=== PATIENT | male | born 1975 | race Caucasian/White ===

== ENCOUNTER 2019-04-01 16:59 | Emergency (ER) | payer SELFPAY ==
[~2019-04-01] VITALS: Ht 188 cm; Wt 136.0 kg
[2019-04-01 17:00] VITALS: BP 144/74
--- NOTE | 2019-04-01 18:59 | RAD ---
EXAM: 3 views right knee DATE: 04/01/2019 5:31 PM INDICATION: Right knee pain COMPARISON: No Prior FINDINGS: No evidence of acute fracture or dislocation. Joint spaces are preserved without significant degenerative/proliferative change. No joint effusion. Neutral patellar tracking. IMPRESSION: No evidence of acute fracture or dislocation. Electronically signed by: Marco Antonio Harley MD (04/01/2019 6:57 PM) [id number]
[2019-04-01] MEDS ORDERED: DICL50TA2 PO (19:10)
[2019-04-01] MEDS ORDERED: METH4TAB2 PO (19:10)
--- NOTE | 2019-04-01 19:10 | PHYS DOC ---
Past Medical History Past Medical History: No Pertinent History Past Surgical History: No Surgical History Smoking Status: Never Smoker Alcohol Use: None Adult General Chief Complaint Chief Complaint: LOWER EXT PAIN HPI HPI Patient is a 44 year old male patient who presents to the ED today with 8 out of 10 right anterior knee pain that began 14 years ago after an injury and got worse yesterday. Patient denies any new injury. Describes the pain as sharp and intermittent worse on certain movements to the knee. Denies anything specifically relieving the pain. Review of Systems Review of Systems Constitutional: Denies fever or chills [] Musculoskeletal: Reports right knee pain Integument: Denies rash or skin lesions [] Neurologic: Denies headache, focal weakness or sensory changes [] All other systems were reviewed and found to be within normal limits, except as documented in this note. Physical Exam Physical Exam Constitutional: Well developed, well nourished, no acute distress, non-toxic appearance. [] Skin: Warm, dry, no erythema, no rash. [] Back: No tenderness, no CVA tenderness. [] Extremities: Right knee with no obvious deformity, full range of motion of the right knee. Slight tenderness on palpation of the right anterior knee. +2 right pedal pulse. Cap refill less than 2 seconds the right lower extremity. Neurologic: Alert and oriented X 3, normal motor function, normal sensory function, no focal deficits noted. [] Psychologic: Affect normal, judgement normal, mood normal. [] Current Patient Data Vital Signs Vital Signs Date Time Temp Pulse Resp B/P (MAP) Pulse Ox O2 Delivery O2 Flow Rate FiO2 04/01/19 17:00 98.2 87 20 144/74 (97) 96 Room Air 98.2 EKG EKG [] Radiology/Procedures Radiology/Procedures []PROCEDURE: KNEE RIGHT 4V EXAM: 3 views right knee DATE: 04/01/2019 5:31 PM INDICATION: Right knee pain COMPARISON: No Prior FINDINGS: No evidence of acute fracture or dislocation. Joint spaces are preserved without significant degenerative/proliferative change. No joint effusion. Neutral patellar tracking. IMPRESSION: No evidence of acute fracture or dislocation. Electronically signed by: Marco Antonio Harley MD (04/01/2019 6:57 PM) [id number] DICTATED and SIGNED BY: MARCO ANTONIO HARLEY MD DATE: 02/18/20 1857 Course & Med Decision Making Course & Med Decision Making Pertinent Labs and Imaging studies reviewed. (See chart for details) This is a 44-year-old male patient presented to the ED today with right knee pain that began 14 years ago but has gotten worse since yesterday. Right knee x- rays interpreted by radiologist are negative for any acute findings. Ice elevation encouraged. Discharged Medrol Dosepak and diclofenac. Follow-up with orthopedic doctor in one week. Dragon Disclaimer Dragon Disclaimer This electronic medical record was generated, in whole or in part, using a voice recognition dictation system. Departure Departure Impression: Primary Impression: Right knee pain Disposition: HOME, SELF-CARE Condition: STABLE Referrals: YAHAIRA ARANDA MD (PCP) ASHA COLBY II, MD follow up in 1-2 weeks Patient Instructions: Knee Pain, [id number] Additional Instructions: You were seen for right knee pain. Your right knee x-rays are negative for any acute findings. Try to ice and elevate the extremity. Take the prescribed medications as ordered. Follow-up with your own doctor in 1-2 weeks Scripts Diclofenac Potassium (DICLOFENAC POTASSIUM) 50 Mg Tablet 1 TAB PO BID, #60 TAB 0 Refills Prov: LUISJOSESITO ARISTIDES 04/01/19 Methylprednisolone (MEDROL) 4 Mg Tab.ds.pk 1 PKG PO UD, #1 PKG Prov: JOSESITO SMITH APRN 04/01/19 Problem Qualifiers Primary Impression: Right knee pain Chronicity: acute Qualified Codes: M25.561 - Pain in right knee JOSESITO SMITH APRN Apr 01, 2019 19:10
== END 2019-04-01 19:12 | disposition home or self-care (01) ==
LOC: ER 16:59
DX: M25.561 Pain in right knee (principal)
CPT/HCPCS: 73564; 99283